=== PATIENT | female | born 1945 | race Caucasian/White ===

== ENCOUNTER 2022-03-09 06:38 | Emergency (ER) | payer MEDICARE ==
[2022-03-09 06:55] VITALS: PULSE 50; TEMP 98.1
--- NOTE | 2022-03-09 07:17 | ED ---
Female Urogenital HPI - General Chief complaint: Urogenital Stated complaint: Urogenital Time Seen by Provider: 03/09/22 07:04 Source: patient, family, RN notes reviewed Mode of arrival: wheelchair - History of Present Illness Initial comments: This is a 76-year-old female who presents to the emergency department for a bladder prolapse and pelvic pressure. Patient was evaluated here yesterday for the same complaints. She was found to have an easily reducible cystocele. A Izquierdo catheter was subsequently placed. This had been working well throughout the night, however early this morning she began to complain of pelvic pressure again. Her son notes that it does not seem like the Izquierdo catheter has been draining properly. He also states that the catheter seems like it has white material stuck inside of it. She sees her primary care provider in 2 days regarding the prolapse. Denies any fevers, chills, sore throat, cough, dyspnea, chest pain, palpitations , nausea, vomiting, diarrhea, back pain, or headaches. MD Complaint: pelvic pain - Related Data Home Medications Medication Instructions Recorded Confirmed Albuterol Sulfate [Albuterol 2 puff PO RT-Q6H PRN 03/08/22 03/08/22 Sulfate Hfa] Alendronate Sodium [Fosamax] 70 mg PO SA 03/08/22 03/08/22 Atorvastatin [Lipitor] 20 mg PO DAILY 03/08/22 03/08/22 Folic Acid 1 mg PO DAILY 03/08/22 03/08/22 Montelukast Sodium [Singulair] 10 mg PO DAILY 03/08/22 03/08/22 Multivitamins, Thera [Multivitamin 1 tab PO DAILY 03/08/22 03/08/22 (formulary)] Omeprazole 20 mg PO DAILY 03/08/22 03/08/22 Umeclidinium Brm/Vilanterol Tr 1 puff INHALATION RT-DAILY 03/08/22 03/08/22 [Anoro Ellipta 62.5-25 Mcg INH] atenoloL 25 mg PO DAILY 03/08/22 03/08/22 lisinopriL 2.5 mg PO DAILY 03/08/22 03/08/22 Previous Rx's Medication Instructions Recorded Nitrofurantoin Monohyd/M-Cryst 100 mg PO Q12HR 5 Days #10 cap 03/08/22 [Macrobid] Allergies Allergy/AdvReac Type Severity Reaction Status Date / Time No Known Allergies Allergy Verified 03/09/22 06:55 Review of Systems ROS Statement: Those systems with pertinent positive or pertinent negative responses have been documented in the HPI. ROS Other: All systems not noted in ROS Statement are negative. Past Medical History Past Medical History: COPD, CVA/TIA, GERD/Reflux, Osteoarthritis (OA), Renal Disease History of Any Multi-Drug Resistant Organisms: None Reported Past Surgical History: Cholecystectomy Past Psychological History: No Psychological Hx Reported Smoking Status: Former smoker Past Alcohol Use History: None Reported Past Drug Use History: None Reported General Exam General appearance: alert, in no apparent distress Head exam: Present: atraumatic, normocephalic, normal inspection Respiratory exam: Present: normal lung sounds bilaterally. Absent: respiratory distress, wheezes, rales, rhonchi, stridor Cardiovascular Exam: Present: regular rate, normal rhythm, normal heart sounds. Absent: systolic murmur, diastolic murmur, rubs, gallop, clicks GI/Abdominal exam: Present: soft, normal bowel sounds. Absent: distended, tenderness Neurological exam: Present: alert, oriented X3, CN II-XII intact Psychiatric exam: Present: normal affect, normal mood Skin exam: Present: warm, dry, intact, normal color. Absent: rash Course Vital Signs 03/09/22 06:50 Temperature 98.1 F Pulse Rate 50 L Respiratory 22 Rate Blood Pressure 128/79 O2 Sat by Pulse 99 Oximetry Medical Decision Making - Medical Decision Making This is a 76-year-old female who presents to the emergency department for a cystocele and Izquierdo catheter problems. Discussed that the cystocele will continue to go in and out, and this is not a medical emergency, as long as she can push it back in. The white matter in the Izquierdo catheter may be related to discharge from the UTI or bladder debris. Bladder scan revealed 11-30 mL. Patient's Izquierdo catheter was flushed, and was draining appropriately afterwards. After discussion with her nurse, it appears that this was clogged by bladder debris. Patient did report improvement in bladder discomfort after having it flushed. Instructed her to continue taking the Macrobid as prescribed. Patient discharged home in stable condition. Instructed her to follow-up as scheduled with her primary care provider in 2 days. Return precautions reviewed in depth, the patient is instructed to return to the emergency department with any new, worsening, or concerning symptoms. Patient verbalized understanding. This case was discussed in detail with the attending ED physician. Presentation, findings, and treatment plan discussed in detail as well. Disposition Clinical Impression: Cystocele Disposition: HOME SELF-CARE Instructions (If sedation given, give patient instructions): Urinary Tract Infection in Women (ED), Cystocele (ED) Additional Instructions: Return to the emergency department with any new, worsening, or concerning symptoms. Avoid excess lifting, straining, or pulling, which can worsen the prolapse. Continue taking the Macrobid as prescribed. Follow-up with your primary care provider as scheduled. Is patient prescribed a controlled substance at d/c from ED?: No Referrals: Nonstaff,Physician [Primary Care Provider] - 1-2 days
[2022-03-09 08:12] VITALS: BP 124/57; RESP 18
== END 2022-03-09 08:12 | disposition home or self-care (01) ==
LOC: EC 06:38
DX: N81.10 Cystocele, unspecified (principal); J44.9 Chronic obstructive pulmonary disease, unspecified; Z86.73 Personal history of transient ischemic attack (TIA), and cerebral infarction without residual deficits; K21.9 Gastro-esophageal reflux disease without esophagitis; M19.90 Unspecified osteoarthritis, unspecified site; N18.9 Chronic kidney disease, unspecified; Z87.891 Personal history of nicotine dependence; Z87.51 Personal history of pre-term labor; Z79.899 Other long term (current) drug therapy
CPT/HCPCS: 51798; 99283

== ENCOUNTER 2023-02-08 00:09 | Emergency (ER) | payer MEDICARE ==
--- NOTE | 2023-02-08 01:31 | ED ---
Fall HPI - General Chief Complaint: Fall Stated Complaint: Back Pain, Fall Time Seen by Provider: 02/08/23 00:35 Source: patient, RN notes reviewed, old records reviewed Mode of arrival: ambulatory Limitations: no limitations - History of Present Illness Initial Comments: This is a 77-year-old female to the ER today. Patient resents today for evaluation of pain back pain right hip pain. Patient had a fall about a week ago now, pain is been persistent now requiring pain meds but patient to the primary is having some difficulty walking. MD Complaint: fall -: week(s) Fall From: standing When Fall Occurred: # days [employer] ATTEND[employer] (7) Fall Witnessed: yes, by family Place Fall Occurred: home Loss of Consciousness: none Prolonged Down Time?: no Symptoms Prior to Fall: none Location: back, pelvis Severity: moderate Severity scale (1-10): 6 Quality: stabbing Context: tripped/slipped Associated Symptoms: denies - Related Data Home Medications Medication Instructions Recorded Confirmed Albuterol Sulfate [Albuterol 2 puff PO RT-Q6H PRN 03/08/22 03/08/22 Sulfate Hfa] Alendronate Sodium [Fosamax] 70 mg PO SA 03/08/22 03/08/22 Atorvastatin [Lipitor] 20 mg PO DAILY 03/08/22 03/08/22 Folic Acid 1 mg PO DAILY 03/08/22 03/08/22 Montelukast Sodium [Singulair] 10 mg PO DAILY 03/08/22 03/08/22 Multivitamins, Thera [Multivitamin 1 tab PO DAILY 03/08/22 03/08/22 (formulary)] Omeprazole 20 mg PO DAILY 03/08/22 03/08/22 Umeclidinium Brm/Vilanterol Tr 1 puff INHALATION RT-DAILY 03/08/22 03/08/22 [Anoro Ellipta 62.5-25 Mcg INH] atenoloL 25 mg PO DAILY 03/08/22 03/08/22 lisinopriL 2.5 mg PO DAILY 03/08/22 03/08/22 Previous Rx's Medication Instructions Recorded Nitrofurantoin Monohyd/M-Cryst 100 mg PO Q12HR 5 Days #10 cap 03/08/22 [Macrobid] Allergies Allergy/AdvReac Type Severity Reaction Status Date / Time No Known Allergies Allergy Verified 03/09/22 06:55 Review of Systems ROS Statement: Those systems with pertinent positive or pertinent negative responses have been documented in the HPI. ROS Other: All systems not noted in ROS Statement are negative. Past Medical History Past Medical History: COPD, CVA/TIA, GERD/Reflux, Osteoarthritis (OA), Renal Disease History of Any Multi-Drug Resistant Organisms: None Reported Past Surgical History: Cholecystectomy Past Psychological History: No Psychological Hx Reported Smoking Status: Former smoker Past Alcohol Use History: None Reported Past Drug Use History: None Reported General Exam Limitations: no limitations General appearance: alert, in no apparent distress Head exam: Present: atraumatic, normocephalic, normal inspection Eye exam: Present: normal appearance, PERRL, EOMI. Absent: scleral icterus, conjunctival injection, periorbital swelling ENT exam: Present: normal exam, mucous membranes moist Neck exam: Present: normal inspection. Absent: tenderness, meningismus, lymphadenopathy Respiratory exam: Present: normal lung sounds bilaterally. Absent: respiratory distress, wheezes, rales, rhonchi, stridor Cardiovascular Exam: Present: regular rate, normal rhythm, normal heart sounds. Absent: systolic murmur, diastolic murmur, rubs, gallop, clicks GI/Abdominal exam: Present: soft, normal bowel sounds. Absent: distended, tenderness, guarding, rebound, rigid Extremities exam: Present: normal inspection, full ROM, normal capillary refill. Absent: tenderness, pedal edema, joint swelling, calf tenderness Back exam: Present: normal inspection Neurological exam: Present: alert, oriented X3, CN II-XII intact Psychiatric exam: Present: normal affect, normal mood Skin exam: Present: warm, dry, intact, normal color. Absent: rash Course Vital Signs 02/08/23 02/08/23 00:24 03:37 Pulse Rate 74 65 Respiratory 18 14 Rate Blood Pressure 117/68 107/59 O2 Sat by Pulse 97 96 Oximetry - Reevaluation(s) Reevaluation #1: 02/08/23 01:35 Medical record is reviewed Reevaluation #2: 02/08/23 01:35 Patient not requiring pain medication Reevaluation #3: 02/08/23 03:10 Patient still not requiring pain medicines of water results and questions are answered Reevaluation #4: 02/08/23 01:35 Was pt. sent in by a medical professional or institution ([facility], INSPECTING SUPERVISOR, urgent care, hospital, or care home...) When possible be specific @ -no Did you speak to anyone other than the patient for history (EMS, parent, family, police, friend...)? What history was obtained from this source @ -no Did you review nursing and triage notes (agree or disagree)? Why? @ -agree Are old charts reviewed (outside hosp., previous admission, EMS record, old EKG, old radiological studies, urgent care reports/EKG's, care home records)? Report findings @ -yes Differential Diagnosis (chest pain, altered mental status, abdominal pain women, abdominal pain men, vaginal bleeding, weakness, fever, dyspnea, syncope, headache, dizziness, GI bleed, back pain, seizure, CVA, palpatations, mental health, musculoskeletal)? @ -prior EKG interpreted by me (3pts min.). @ -no X-rays interpreted by me (1pt min.). @ -yes CT interpreted by me (1pt min.). @ -no U/S interpreted by me (1pt. min.). @ -no What testing was considered but not performed or refused? (CT, X-rays, U/S, labs)? Why? @ -none What meds were considered but not given or refused? Why? @ -none Did you discuss the management of the patient with other professionals (professionals i.e. [employer], INSPECTING SUPERVISOR, lab, RT, psych nurse, mental health social worker, algology teacher, teacher, enforcement safety officer, case planner)? Give summary @ -no Was smoking cessation discussed for >3mins.? @ -no Was critical care preformed (if so, how long)? @ -no Were there social determinants of health that impacted care today? How? (Homelessness, low income, unemployed, alcoholism, drug addiction, transportation, low edu. Level, literacy, decrease access to med. care, retirement, rehab)? @ -none Was there de-escalation of care discussed even if they declined (Discuss DNR or withdrawal of care, Hospice)? DNR status @ -no What co-morbidities impacted this encounter? (DM, HTN, Smoking, COPD, CAD, Cancer, CVA, ARF, Chemo, Hep., AIDS, mental health diagnosis, sleep apnea, morbid obesity)? @ -none Was patient admitted / discharged? Hospital course, mention meds given and route, prescriptions, significant lab abnormalities, going to OR and other pertinent info. @ - 87 female to the emergency department for evaluation for back pain right pelvic pain and right hip pain. No traumatic injury is noted and patient can be discharged home Discharge Undiagnosed new problem with uncertain prognosis? @ -no Drug Therapy requiring intensive monitoring for toxicity (Heparin, Nitro, Insulin, Cardizem)? @ -no Were any procedures done? @ -no Diagnosis/symptom? @ -Back pain, hip pain Acute, or Chronic, or Acute on Chronic? @ -Acute Uncomplicated (without systemic symptoms) or Complicated (systemic symptoms)? @ -Complicated Side effects of treatment? @ -no Exacerbation, Progression, or Severe Exacerbation? @ -exacerbation Poses a threat to life or bodily function? How? (Chest pain, USA, NV, pneumonia, PE, COPD, DKA, ARF, appy, cholecystitis, CVA, Diverticulitis, Homicidal, Suicidal, threat to staff... and all critical care pts) @ -no Reevaluation #5: 02/08/23 01:35 Differential Back Pain: Strain, zoster, cauda equina syndrome, epidural abscess, vertebral osteomyelitis, discitis, fracture, subluxation, disc herniation, DJD, spinal stenosis, dissection, AAA, pancreatitis, peptic ulcer disease, pyelonephritis, kidney stone, this is not meant to be an all-inclusive list. Medical Decision Making - Medical Decision Making 77 female to the emergency department for evaluation for back pain right pelvic pain and right hip pain. No triadic injury is noted and patient can be discharged home - Radiology Data Radiology results: report reviewed (X-ray pelvis right hip negative for traumatic injury), image reviewed Disposition Clinical Impression: Fall, Contusion of right hip, Back pain Disposition: HOME SELF-CARE Condition: Good Instructions (If sedation given, give patient instructions): Hip Pain (ED), Fall Prevention for Older Adults (ED) Is patient prescribed a controlled substance at d/c from ED?: No Referrals: Nonstaff,Physician [Primary Care Provider] - 1-2 days Time of Disposition: 03:10
--- NOTE | 2023-02-08 02:50 | XR ---
EXAM: XR Right Hip With Pelvis When Performed, 2 or 3 Views CLINICAL HISTORY: ITS.REASON XR Reason: fall TECHNIQUE: Two or three views of the right hip with pelvis when performed. COMPARISON: No relevant prior studies available. 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 Soft tissues: Unremarkable. IMPRESSION: No acute findings in the right hip.
[2023-02-08 03:41] VITALS: BP 107/59; PULSE 65; RESP 14
== END 2023-02-08 03:41 | disposition home or self-care (01) ==
LOC: EC 00:09
DX: S70.01XA Contusion of right hip, initial encounter (principal); M54.9 Dorsalgia, unspecified; R10.2 Pelvic and perineal pain; J44.9 Chronic obstructive pulmonary disease, unspecified; K21.9 Gastro-esophageal reflux disease without esophagitis; Z90.49 Acquired absence of other specified parts of digestive tract; Z87.891 Personal history of nicotine dependence; Z86.73 Personal history of transient ischemic attack (TIA), and cerebral infarction without residual deficits; Z79.899 Other long term (current) drug therapy; W18.30XA Fall on same level, unspecified, initial encounter; Y92.009 Unspecified place in unspecified non-institutional (private) residence as the place of occurrence of the external cause
CPT/HCPCS: 73502; 99284